=== PATIENT | female | born 1970 | race Caucasian/White ===

== ENCOUNTER 2022-05-19 19:30 | Emergency (ER) | payer OTHER ==
[~2022-05-19] VITALS: Ht 165.1 cm; Wt 69.4 kg
[2022-05-19 19:45] VITALS: BP 114/82
--- NOTE | 2022-05-19 19:48 | NUR ---
TO LOBBY A/W BED AMBULATORY
--- NOTE | 2022-05-19 21:21 | NUR ---
URINE WALKED TO LAB.
[2022-05-19 21:29] LABS: APPEARANCE,URINE CLEAR (CLEAR); BILIRUBIN,URINE NEGATIVE (NEGATIVE); BLOOD, URINE 2+ (NEGATIVE); COLOR,URINE YELLOW (YELLOW); LEUKOCYTE ESTERASE ,URINE TRACE (NEGATIVE); NITRITE, URINE POSITIVE (NEGATIVE); UGLUCOSE NEGATIVE (NEGATIVE)
[2022-05-19 22:00] LABS: WBC,URINE 0-5 /HPF (0-5)
--- NOTE | 2022-05-19 22:43 | NUR ---
TO BED 11 FROM LOBBY
--- NOTE | 2022-05-19 22:52 | NUR ---
c/o 12/18 lower abdominal pain that started saturday. per pt, episodes of diarrhea, nausea and vomiting and c/o headache. pt states she was in urgent care this morning and they prescribed her antibiotics and azo for pain but it was ineffective. denies any pmhx. denies any allergies.
--- NOTE | 2022-05-19 22:53 | NUR ---
Dr. Ruiz by bedside
[2022-05-19] MEDS ORDERED: MORPHINE SULFATE 4 MG/ML SYR IVP ONE (23:00)
[2022-05-19] MEDS ORDERED: ONDANSETRON 4 MG/2 ML VIAL IVP ONE (23:00)
--- NOTE | 2022-05-19 23:06 | NUR ---
Labs collected and sent to lab
--- NOTE | 2022-05-19 23:18 | NUR ---
Pt to CT
[2022-05-19 23:28] LABS: ALBUMIN 4.2 g/dL (3.4-5.0); ANION GAP 15.3 (8-16); CARBON DIOXIDE 25.3 mmol/L (21-32); CREATININE 0.8 mg/dL (0.6-1.3); POTASSIUM 3.6 mmol/L (3.5-5.1); TOTAL BILIRUBIN 0.6 mg/dL (0.0-1.0)
[2022-05-20] MEDS ORDERED: NACL 0.9% 1,000 ML IV ONE (00:05)
[2022-05-20] MEDS ORDERED: KETOROLAC 30 MG/ML VIAL IVP ONE (00:05)
[2022-05-20 00:26] LABS: BASOPHILS % (AUTO) 0.5 % (0.0-2.0); EOSINOPHILS % (AUTO) 0.1 % (0.0-4.0); HEMATOCRIT 37.8 % (36-48); HEMOGLOBIN 12.7 g/dL (12.0-16.0); LYMPHOCYTES # (AUTO) 0.7 K/uL (2.5-16.5); LYMPHOCYTES % (AUTO) 8.3 % (20.5-51.1); MEAN CORPUSCULAR HEMOGLOBIN 29 pg (27-31); MEAN CORPUSCULAR HGB CONC 34 g/dL (33-37); MEAN CORPUSCULAR VOLUME 86.1 fL (80-94); MONOCYTES # (AUTO) 0.4 K/uL (0.8-1.0); MONOCYTES % (AUTO) 5.1 % (1.7-9.3); NEUTROPHILS # (AUTO) 7.4 K/uL (1.8-7.7); PLATELET COUNT (AUTO) 322 K/uL (140-450); RED BLOOD CELL COUNT(AUTO) 4.39 MIL/uL (4.20-5.40); WHITE BLOOD COUNT (AUTO) 8.6 K/uL (4.8-10.8)
[2022-05-20] MEDS ORDERED: ACET-8905 PO (04:56)
[2022-05-20] MEDS ORDERED: NAPR-54 PO (04:56)
[2022-05-20 05:08] VITALS: BP 127/73
--- NOTE | 2022-05-20 05:09 | NUR ---
Patient discharged with v/s stable. Written and verbal after care instructions given and explained. New RX for [place] and Naproxen. Patient verbalized understanding. Ambulatory with steady gait. All questions addressed prior to discharge. Advised to follow up with PMD.
== END 2022-05-20 05:07 | disposition home or self-care (01) ==
LOC: MED 19:30
DX: N39.0 Urinary tract infection, site not specified (principal); K58.9 Irritable bowel syndrome, unspecified; Z88.0 Allergy status to penicillin; Z79.899 Other long term (current) drug therapy
CPT/HCPCS: 36415; 74176; 80053; 81001; 81025; 83690; 84703; 85025; 87086; 96361; 96374; 96375; 99285; J1885; J2270; J2405; J7030